=== PATIENT | male | born 1965 | race Caucasian/White ===

== ENCOUNTER → 2020-11-22 | Day surgery (SDC) | payer BC ==
[~2020-11-22] MED LIST: ATOR20TA58 PO; IPRATRPIUM/ALBUTEROL 0.5/2.5MG 3 ML NEBU. NEB PRN; IV RINGERS SOLUTION,LACTATED 1,000 ML IV SCH; LIDOCAINE 2% PF 5 ML VIAL. ONE; LISI20TA18 PO; METF10007 PO; MIDAZOLAM HCL PF 2 MG/2 ML VIAL. IV ONE; OMEP40CA7 PO; ONDANSETRON PF 4 MG/2 ML VIAL. IV PRN; PROPOFOL 10,000 MCG/ML (20ML) VIAL IV ONE
[2020-11-22 11:01] VITALS: BP 130/70
== END ==
LOC: SURG 09:01
PROVIDERS: ATTEND Internal Medicine Gastroenterology
DX: Z12.11 Encounter for screening for malignant neoplasm of colon (principal); K57.30 Diverticulosis of large intestine without perforation or abscess without bleeding; K64.8 Other hemorrhoids; I10 Essential (primary) hypertension; I25.10 Atherosclerotic heart disease of native coronary artery without angina pectoris; Z20.822 Contact with and (suspected) exposure to COVID-19; Z86.010 Personal history of colon polyps; Z79.899 Other long term (current) drug therapy; Z98.890 Other specified postprocedural states
CPT/HCPCS: 45378; 82947; 87426; C9803; J2001; J2704; J7120; U0003

== ENCOUNTER → 2021-01-09 | Outpatient (CLI) | payer BC ==
[2020-11-22 11:01] VITALS: BP 130/70
[~2021-01-09] MED LIST changes: -IPRATRPIUM/ALBUTEROL 0.5/2.5MG 3 ML NEBU. NEB PRN; -IV RINGERS SOLUTION,LACTATED 1,000 ML IV SCH; -LIDOCAINE 2% PF 5 ML VIAL. ONE; -MIDAZOLAM HCL PF 2 MG/2 ML VIAL. IV ONE; -ONDANSETRON PF 4 MG/2 ML VIAL. IV PRN; -PROPOFOL 10,000 MCG/ML (20ML) VIAL IV ONE
--- NOTE | 2021-01-09 08:50 | RAD ---
EXAM: Abdominal aortic sonogram. HISTORY: Aortic aneurysm. TECHNIQUE: Sonographic imaging of the abdominal aorta was performed. COMPARISON: None. FINDINGS: The proximal abdominal aorta measures 2.4 cm in caliber. The mid abdominal aorta measures 1 .6 cm in caliber. The distal abdominal aorta measures 1.7 cm in caliber. The bilateral common iliac a rteries measure 1.3 cm in caliber. There is aortobiiliac atherosclerosis. There are elevated peak sys tolic velocities within the right greater than left common iliac arteries suggesting a component of s tenosis. IMPRESSION: No sonographic evidence of abdominal aortic aneurysm. Electronically signed by: Leigh Hazel MD (01/09/2021 8:47 AM) [facility]
== END ==
LOC: US 07:52
PROVIDERS: ATTEND Family Medicine
DX: I70.0 Atherosclerosis of aorta (principal); I71.4 Abdominal aortic aneurysm, without rupture
CPT/HCPCS: 76770

== ENCOUNTER → 2021-07-12 | Outpatient (CLI) | payer BC ==
[2020-11-22 11:01] VITALS: BP 130/70
--- NOTE | 2021-07-12 14:52 | RAD ---
AP and Lateral Views of the Chest 07/12/2021 1:36 PM Indication: Follow-up, pneumonia Comparison: Chest radiograph April 07, 2019 Findings: There is no focal consolidation or infiltrate identified. The cardiomediastinal silhouette is within normal limits. There is no evidence of pneumothorax or pleural effusion. No acute osseous a bnormalities are identified. Impression: No evidence of acute cardiopulmonary process. Electronically signed by: Kalyan Araiza MD (07/12/2021 2:50 PM) [id number]
== END ==
LOC: RAD 13:31
PROVIDERS: ATTEND Family Medicine
DX: J18.9 Pneumonia, unspecified organism (principal)
CPT/HCPCS: 71046